=== PATIENT | male | born 1945 | race Caucasian/White ===

== ENCOUNTER 2018-02-06 16:00 | Inpatient (IN) ==
[2018-02-06] MEDS ORDERED: LISINOPRIL 10 MG TABLET PO STA (16:26)
[2018-02-06] MEDS ORDERED: FUROSEMIDE 40 MG/4 ML VIAL IV STA (16:26)
[2018-02-06 17:15] LABS: Basophils % 0.4 % (0.0-0.8); Eosinophils # 0.1 10*3/uL (0.0-0.87); Eosinophils % 1.5 % (0.00-10.9); Hematocrit 34.6 VOL% (42.0-52.0); Hemoglobin 11.4 GM/DL (14.0-18.0); Immature Granulocytes % 0.6 %; Immature Granulocytes Absolute 0.03 #; Lymphocytes # 1.1 10*3/uL (1.4-4.0); Lymphocytes % 22.2 % (21.2-54.2); Mean Corpuscular HGB Conc 32.9 GM/DL (32-36); Mean Corpuscular Hemoglobin 31 PG (27-34); Mean Corpuscular Volume 95.3 FL (87-102); Mean Platelet Volume 9.4 FL (9.6-12.0); Monocytes # 0.6 10*3/uL (0.11-0.8); Monocytes % 12.9 % (1.7-12.7); Neutrophils % 62.4 % (38.7-73.9); Platelet Count 196 T/CUMM (130-400); Red Blood Count 3.63 MC/CUMM (3.8-5.5); Red Cell Distribution Width 12.4 % (9.3-17.3); White Blood Count 4.8 T/CUMM (4-12)
[2018-02-06 17:26] LABS: Apearance,Urine CLEAR (Clear); Bilirubin,Urine Negative (Negative); Blood, Urine Negative (Negative); Glucose,Urine (UA) Negative (Negative); Hyaline Casts,Urine 1 /LPF (0-3); Ketones,Urine Negative (Negative); Mucus,Urine Occasional /LPF (Occasional); Nitrite,Urine Negative (Negative); Protein,Urine Negative; RBC,Urine <1 /HPF (0-4); Urine Color Yellow (Yellow); Urine Specific Gravity 1.012 (1.001-1.035); Urine Urobilinogen < 2.0 EU/DL (0.2-1.0); WBC,Urine 1 /HPF (0-6)
[2018-02-06 17:36] LABS: CKMB % 3.4 %; Troponin I < 0.015 NG/ML (0.00-0.045)
[2018-02-06 17:44] LABS: Albumin 3.2 G/DL (3.4-5.0); Bilirubin,Total 0.4 MG/DL (0.2-1.0); Calcium 10.4 MG/DL (8.5-10.1); Free T4 (Free Thyroxine) 0.95 NG/DL (0.76-1.46); Potassium 3.4 MMOL/L (3.5-5.1); Thyroid Stimulating Hormone 4.02 uIU/ml (0.358-3.74); Total Protein 6.7 G/DL (6.4-8.3)
[2018-02-06] MEDS ORDERED: DOCUSATE SODIUM 100 MG CAPSULE PO PRN (20:00)
[2018-02-06] MEDS ORDERED: ONDANSETRON 4 MG/2 ML VIAL IV PRN (20:00)
[2018-02-06] MEDS ORDERED: LACTULOSE 20 GM/30 ML UDCUP PO PRN (20:00)
[2018-02-06] MEDS ORDERED: ACETAMINOPHEN 325 MG TABLET PO PRN (20:00)
[2018-02-06] MEDS: cefTRIAXone 2,000 MG in SYRINGE 1 EACH IV SCH (22:45)
[2018-02-06] MEDS: SODIUM CHLORIDE 0.45% 1,000 ML IV SCH (22:45)
[2018-02-06] MEDS: ENOXAPARIN 30 MG/0.3 ML SYRINGE SUBCUT SCH (22:49)
[2018-02-06] MEDS: AZITHROMYCIN INJ 250 MG in SODIUM CHLORIDE 0.9% 250 ML IV SCH (22:53)
[2018-02-07 05:10] LABS: Basophils % 0.3 % (0.0-0.8); Eosinophils # 0.1 10*3/uL (0.0-0.87); Eosinophils % 2.1 % (0.00-10.9); Hematocrit 32.2 VOL% (42.0-52.0); Hemoglobin 10.6 GM/DL (14.0-18.0); Lymphocytes # 0.9 10*3/uL (1.4-4.0); Lymphocytes % 22.6 % (21.2-54.2); Mean Corpuscular HGB Conc 32.9 GM/DL (32-36); Mean Corpuscular Hemoglobin 31 PG (27-34); Mean Corpuscular Volume 94.2 FL (87-102); Mean Platelet Volume 9.7 FL (9.6-12.0); Monocytes # 0.5 10*3/uL (0.11-0.8); Monocytes % 11.8 % (1.7-12.7); Neutrophils # 2.4 10*3/uL (1.4-7.4); Neutrophils % 63.2 % (38.7-73.9); Platelet Count 196 T/CUMM (130-400); Red Blood Count 3.42 MC/CUMM (3.8-5.5); Red Cell Distribution Width 12.6 % (9.3-17.3); White Blood Count 3.8 T/CUMM (4-12)
[2018-02-07 05:57] LABS: Calcium 10.9 MG/DL (8.5-10.1); Osmolality,Calculated 287.1 MOS/KG (273-304); Potassium 3.1 MMOL/L (3.5-5.1); Thyroid Stimulating Hormone 3.41 uIU/ml (0.358-3.74)
[2018-02-07] MEDS ORDERED: POTASSIUM CHLORIDE 20 MEQ TABLET PO PRN (07:29)
[2018-02-07] MEDS: amLODIPine 5 MG TABLET PO SCH (09:22)
[2018-02-07] MEDS ORDERED: cefTRIAXone 1,000 MG in SODIUM CHLORIDE 0.9% 100 ML IV ONE (11:57)
[2018-02-07] MEDS ORDERED: fentaNYL 100 MCG/2 ML VIAL ONE (16:55)
[2018-02-07] MEDS ORDERED: SEVOFLURANE 1 UNIT/15 MINUTE INH ONE (16:55)
[2018-02-07] MEDS ORDERED: HYDROmorphone 2 MG/1 ML VIAL IV PRN (17:03)
[2018-02-07] MEDS ORDERED: ONDANSETRON 4 MG/2 ML VIAL IV PRN (17:03)
[2018-02-07] MEDS ORDERED: ONDANSETRON 4 MG/2 ML VIAL ONE (17:17)
[2018-02-07] MEDS ORDERED: HYDROmorphone 2 MG/1 ML VIAL ONE (17:17)
[2018-02-07 18:08] LABS: INR 1.1; PT Patient Result 11.4 SECS
[2018-02-07] MEDS: AZITHROMYCIN INJ 250 MG in SODIUM CHLORIDE 0.9% 250 ML IV SCH (20:46)
[2018-02-07] MEDS: ENOXAPARIN 30 MG/0.3 ML SYRINGE SUBCUT SCH (21:07)
[2018-02-08] MEDS: SODIUM CHLORIDE 0.45% 1,000 ML IV SCH ×2 (01:16→18:17)
[2018-02-08 05:39] LABS: Basophils % 0.3 % (0.0-0.8); Eosinophils # 0.1 10*3/uL (0.0-0.87); Eosinophils % 0.9 % (0.00-10.9); Hematocrit 31.8 VOL% (42.0-52.0); Hemoglobin 10.1 GM/DL (14.0-18.0); Immature Granulocytes % 0.3 %; Immature Granulocytes Absolute 0.02 #; Lymphocytes # 0.9 10*3/uL (1.4-4.0); Lymphocytes % 16.2 % (21.2-54.2); Mean Corpuscular HGB Conc 31.8 GM/DL (32-36); Mean Corpuscular Hemoglobin 31 PG (27-34); Mean Corpuscular Volume 96.7 FL (87-102); Mean Platelet Volume 9.6 FL (9.6-12.0); Monocytes # 0.5 10*3/uL (0.11-0.8); Monocytes % 9.3 % (1.7-12.7); Neutrophils # 4.3 10*3/uL (1.4-7.4); Platelet Count 168 T/CUMM (130-400); Red Blood Count 3.29 MC/CUMM (3.8-5.5); Red Cell Distribution Width 12.8 % (9.3-17.3); White Blood Count 5.8 T/CUMM (4-12)
[2018-02-08 06:00] LABS: Calcium 11.1 MG/DL (8.5-10.1); Osmolality,Calculated 287.1 MOS/KG (273-304); Potassium 3.9 MMOL/L (3.5-5.1)
[2018-02-08] MEDS ORDERED: SODIUM CHLORIDE 0.9% 500 ML IV ONE (09:40)
[2018-02-08] MEDS: amLODIPine 5 MG TABLET PO SCH (14:30)
[2018-02-08] MEDS: POTASSIUM CHLORIDE 20 MEQ TABLET PO SCH (14:30)
[2018-02-08] MEDS: cefTRIAXone 2,000 MG in SYRINGE 1 EACH IV SCH (21:08)
[2018-02-08] MEDS: ENOXAPARIN 30 MG/0.3 ML SYRINGE SUBCUT SCH (21:15)
[2018-02-08] MEDS: AZITHROMYCIN INJ 250 MG in SODIUM CHLORIDE 0.9% 250 ML IV SCH (22:33)
[2018-02-08] MEDS: traZODone 50 MG TABLET PO PRN (22:50)
[2018-02-09] MEDS: amLODIPine 5 MG TABLET PO SCH (08:22)
[2018-02-09] MEDS: POTASSIUM CHLORIDE 20 MEQ TABLET PO SCH (08:22)
[2018-02-09] MEDS: SODIUM CHLORIDE 0.45% 1,000 ML IV SCH (16:13)
[2018-02-09] MEDS: cefTRIAXone 2,000 MG in SYRINGE 1 EACH IV SCH (22:09)
[2018-02-09] MEDS: AZITHROMYCIN INJ 250 MG in SODIUM CHLORIDE 0.9% 250 ML IV SCH (22:10)
[2018-02-09] MEDS: ENOXAPARIN 30 MG/0.3 ML SYRINGE SUBCUT SCH (22:10)
[2018-02-10 04:26] LABS: Basophils % 0.3 % (0.0-0.8); Eosinophils # 0.1 10*3/uL (0.0-0.87); Eosinophils % 2.2 % (0.00-10.9); Hemoglobin 10.4 GM/DL (14.0-18.0); Immature Granulocytes % 0.3 %; Immature Granulocytes Absolute 0.02 #; Lymphocytes # 1.2 10*3/uL (1.4-4.0); Lymphocytes % 18.5 % (21.2-54.2); Mean Corpuscular HGB Conc 32.5 GM/DL (32-36); Mean Corpuscular Hemoglobin 31 PG (27-34); Mean Corpuscular Volume 95.8 FL (87-102); Mean Platelet Volume 9.7 FL (9.6-12.0); Monocytes # 0.6 10*3/uL (0.11-0.8); Monocytes % 9.7 % (1.7-12.7); Neutrophils # 4.3 10*3/uL (1.4-7.4); Platelet Count 141 T/CUMM (130-400); Red Blood Count 3.34 MC/CUMM (3.8-5.5); Red Cell Distribution Width 12.6 % (9.3-17.3); White Blood Count 6.3 T/CUMM (4-12)
[2018-02-10 04:46] LABS: Calcium 10.7 MG/DL (8.5-10.1); Osmolality,Calculated 282.5 MOS/KG (273-304); Potassium 3.7 MMOL/L (3.5-5.1)
[2018-02-10] MEDS: amLODIPine 5 MG TABLET PO SCH (09:05)
[2018-02-10] MEDS: POTASSIUM CHLORIDE 20 MEQ TABLET PO SCH (09:05)
[2018-02-10] MEDS: SODIUM CHLORIDE 0.45% 1,000 ML IV SCH (15:51)
[2018-02-10] MEDS: cefTRIAXone 2,000 MG in SYRINGE 1 EACH IV SCH (22:02)
[2018-02-10] MEDS: ENOXAPARIN 30 MG/0.3 ML SYRINGE SUBCUT SCH (22:03)
[2018-02-10] MEDS: AZITHROMYCIN INJ 250 MG in SODIUM CHLORIDE 0.9% 250 ML IV SCH (22:03)
[2018-02-11 06:14] LABS: Calcium 10.7 MG/DL (8.5-10.1); Osmolality,Calculated 284.4 MOS/KG (273-304); Potassium 3.8 MMOL/L (3.5-5.1)
[2018-02-11] MEDS: amLODIPine 5 MG TABLET PO SCH (09:24)
[2018-02-11] MEDS: POTASSIUM CHLORIDE 20 MEQ TABLET PO SCH (09:24)
[2018-02-11] MEDS: ENOXAPARIN 30 MG/0.3 ML SYRINGE SUBCUT SCH (21:20)
[2018-02-11] MEDS: traZODone 50 MG TABLET PO PRN (21:20)
[2018-02-12 04:42] LABS: Osmolality,Calculated 287.3 MOS/KG (273-304); Potassium 4.1 MMOL/L (3.5-5.1)
[2018-02-12] MEDS: amLODIPine 5 MG TABLET PO SCH (09:31)
[2018-02-12] MEDS: POTASSIUM CHLORIDE 20 MEQ TABLET PO SCH (09:31)
[2018-02-12 15:03] LABS: Microalbum/Creat Ratio Random 231.9 RATIO (0-30)
[2018-02-12] MEDS: traZODone 50 MG TABLET PO PRN (20:38)
[2018-02-12] MEDS: ENOXAPARIN 30 MG/0.3 ML SYRINGE SUBCUT SCH (20:38)
[2018-02-13 05:19] LABS: Basophils % 0.2 % (0.0-0.8); Eosinophils # 0.2 10*3/uL (0.0-0.87); Hematocrit 33.8 VOL% (42.0-52.0); Hemoglobin 10.9 GM/DL (14.0-18.0); Immature Granulocytes % 0.4 %; Immature Granulocytes Absolute 0.02 #; Lymphocytes # 1.1 10*3/uL (1.4-4.0); Lymphocytes % 20.3 % (21.2-54.2); Mean Corpuscular HGB Conc 32.2 GM/DL (32-36); Mean Corpuscular Hemoglobin 31 PG (27-34); Mean Corpuscular Volume 95.5 FL (87-102); Mean Platelet Volume 9.7 FL (9.6-12.0); Monocytes # 0.5 10*3/uL (0.11-0.8); Neutrophils # 3.4 10*3/uL (1.4-7.4); Neutrophils % 65.1 % (38.7-73.9); Platelet Count 189 T/CUMM (130-400); Red Blood Count 3.54 MC/CUMM (3.8-5.5); Red Cell Distribution Width 12.8 % (9.3-17.3); White Blood Count 5.2 T/CUMM (4-12)
[2018-02-13 05:55] LABS: Osmolality,Calculated 285.3 MOS/KG (273-304); Potassium 4.3 MMOL/L (3.5-5.1)
[2018-02-13 06:00] LABS: Albumin 2.6 G/DL (3.4-5.0); Bilirubin,Total 0.5 MG/DL (0.2-1.0); Calcium 11.2 MG/DL (8.5-10.1); Osmolality,Calculated 288.1 MOS/KG (273-304); Potassium 4.3 MMOL/L (3.5-5.1); Total Protein 6.2 G/DL (6.4-8.3)
[2018-02-13] MEDS: amLODIPine 5 MG TABLET PO SCH (08:08)
[2018-02-13] MEDS: POTASSIUM CHLORIDE 20 MEQ TABLET PO SCH (08:08)
[2018-02-13] MEDS: ALLOPURINOL 100 MG TABLET PO SCH (09:35)
[2018-02-13] MEDS: SODIUM CHLORIDE 0.45% 1,000 ML IV SCH ×2 (09:38→20:21)
[2018-02-13] MEDS: ENOXAPARIN 40 MG/0.4 ML SYRINGE SUBCUT SCH (20:22)
[2018-02-14] MEDS: traZODone 50 MG TABLET PO PRN (00:39)
[2018-02-14 05:42] LABS: Calcium 10.8 MG/DL (8.5-10.1); Osmolality,Calculated 283.4 MOS/KG (273-304)
[2018-02-14] MEDS: SODIUM CHLORIDE 0.45% 1,000 ML IV SCH (05:55)
[2018-02-14] MEDS ORDERED: ceFAZolin 1,000 MG in SYRINGE 1 EACH IV ONE (06:30)
[2018-02-14] MEDS ORDERED: FOSAPREPITANT 150 MG in SODIUM CHLORIDE 0.9% 100 ML IV ONE ×2 (09:30→15:00)
[2018-02-14] MEDS ORDERED: VINCRISTINE IV ONE ×2 (09:30→16:00)
[2018-02-14] MEDS ORDERED: diphenhydrAMINE CAP 50 MG CAPSULE PO ONE ×2 (09:30→18:00)
[2018-02-14] MEDS ORDERED: SODIUM CHLORIDE 0.9% IV ONE ×2 (09:30→17:00)
[2018-02-14] MEDS ORDERED: PALONOSETRON 0.25 MG/5 ML VIAL IV ONE (09:30)
[2018-02-14] MEDS ORDERED: ACETAMINOPHEN 325 MG TABLET PO ONE ×2 (09:30→18:00)
[2018-02-14] MEDS ORDERED: DEXAMETHASONE 10 MG/1 ML VIAL IV ONE (09:30)
[2018-02-14] MEDS ORDERED: CYCLOPHOSPHAMIDE IV ONE ×2 (09:30→17:00)
[2018-02-14] MEDS ORDERED: riTUXimab 750 MG in SODIUM CHLORIDE 0.9% 675 ML IV ONE ×2 (09:30→17:00)
[2018-02-14] MEDS ORDERED: DOXORUBICIN IV ONE ×2 (09:30→17:00)
[2018-02-14] MEDS ORDERED: BUPIVACAINE 0.5% /EPI 10 ML VIAL ONE (11:30)
[2018-02-14] MEDS ORDERED: HEPARIN 5,000 UNIT/1 ML VIAL ONE (11:31)
[2018-02-14] MEDS ORDERED: LIDOCAINE 1%/EPI INJ 20 ML VIAL ONE (11:31)
[2018-02-14] MEDS ORDERED: TISSUE ADHESIVE 1 EACH APPLICATOR TOP ONE (11:31)
[2018-02-14] MEDS ORDERED: fentaNYL 100 MCG/2 ML VIAL ONE (13:37)
[2018-02-14] MEDS ORDERED: ONDANSETRON 4 MG/2 ML VIAL ONE (13:37)
[2018-02-14] MEDS ORDERED: MIDAZOLAM 2 MG/2 ML VIAL ONE (13:37)
[2018-02-14] MEDS: POTASSIUM CHLORIDE 20 MEQ TABLET PO SCH (15:07)
[2018-02-14] MEDS: ALLOPURINOL 100 MG TABLET PO SCH (15:08)
[2018-02-14] MEDS: amLODIPine 5 MG TABLET PO SCH (15:08)
[2018-02-14] MEDS ORDERED: RASBURICASE 7.5 MG in SODIUM CHLORIDE 0.9% 50 ML IV ONE ×2 (17:00→18:00)
[2018-02-14] MEDS: ENOXAPARIN 40 MG/0.4 ML SYRINGE SUBCUT SCH (21:01)
[2018-02-15] MEDS: SODIUM CHLORIDE 0.45% 1,000 ML IV SCH ×2 (01:32→01:33)
[2018-02-15 04:01] LABS: Hematocrit 33.9 VOL% (42.0-52.0); Immature Granulocytes % 0.6 %; Immature Granulocytes Absolute 0.03 #; Lymphocytes # 0.4 10*3/uL (1.4-4.0); Lymphocytes % 6.9 % (21.2-54.2); Mean Corpuscular HGB Conc 32.4 GM/DL (32-36); Mean Corpuscular Hemoglobin 31 PG (27-34); Mean Corpuscular Volume 95.2 FL (87-102); Mean Platelet Volume 9.4 FL (9.6-12.0); Monocytes # 0.1 10*3/uL (0.11-0.8); Monocytes % 2.3 % (1.7-12.7); Neutrophils # 4.7 10*3/uL (1.4-7.4); Neutrophils % 90.2 % (38.7-73.9); Platelet Count 198 T/CUMM (130-400); Red Blood Count 3.56 MC/CUMM (3.8-5.5); Red Cell Distribution Width 12.4 % (9.3-17.3); White Blood Count 5.3 T/CUMM (4-12)
[2018-02-15 04:21] LABS: Osmolality,Calculated 286.5 MOS/KG (273-304); Potassium 4.9 MMOL/L (3.5-5.1)
[2018-02-15 04:24] LABS: Albumin 2.5 G/DL (3.4-5.0); Bilirubin,Total 0.7 MG/DL (0.2-1.0); Calcium 9.9 MG/DL (8.5-10.1); Osmolality,Calculated 289.4 MOS/KG (273-304); Total Protein 5.9 G/DL (6.4-8.3)
[2018-02-15 04:28] LABS: Uric Acid 4.1 MG/DL (3.5-7.2)
[2018-02-15] MEDS: amLODIPine 5 MG TABLET PO SCH (10:10)
[2018-02-15] MEDS: predniSONE 50 MG TABLET PO SCH (10:11)
[2018-02-15] MEDS: ALLOPURINOL 100 MG TABLET PO SCH (10:11)
[2018-02-15] MEDS: FILGRASTIM-SNDZ 300 MCG/0.5 ML SYRINGE SUBCUT SCH (10:12)
[2018-02-15] MEDS: SODIUM BICARB INJ 100 MEQ in DEXTROSE 5% 1,000 ML IV SCH (13:37)
[2018-02-15] MEDS: ENOXAPARIN 40 MG/0.4 ML SYRINGE SUBCUT SCH (21:02)
[2018-02-16] MEDS: SODIUM BICARB INJ 100 MEQ in DEXTROSE 5% 1,000 ML IV SCH ×3 (00:01→21:31)
[2018-02-16 06:11] LABS: Basophils % 0.1 % (0.0-0.8); Hematocrit 32.7 VOL% (42.0-52.0); Hemoglobin 10.9 GM/DL (14.0-18.0); Immature Granulocytes % 2.8 %; Immature Granulocytes Absolute 0.49 #; Lymphocytes # 0.5 10*3/uL (1.4-4.0); Lymphocytes % 2.5 % (21.2-54.2); Mean Corpuscular HGB Conc 33.3 GM/DL (32-36); Mean Corpuscular Hemoglobin 32 PG (27-34); Mean Corpuscular Volume 95.9 FL (87-102); Mean Platelet Volume 9.5 FL (9.6-12.0); Monocytes % 5.8 % (1.7-12.7); Neutrophils # 15.8 10*3/uL (1.4-7.4); Neutrophils % 88.8 % (38.7-73.9); Platelet Count 263 T/CUMM (130-400); Red Blood Count 3.41 MC/CUMM (3.8-5.5); Red Cell Distribution Width 12.6 % (9.3-17.3); White Blood Count 17.8 T/CUMM (4-12)
[2018-02-16 06:20] LABS: Uric Acid 2.3 MG/DL (3.5-7.2)
[2018-02-16 06:23] LABS: Alanine Aminotransferase 23 U/L (16-61); Albumin 2.7 G/DL (3.4-5.0); Alkaline Phosphatase 96 U/L (45-117); Aspartate Amino Transferase 26 U/L (0-37); Bilirubin,Total < 0.39 MG/DL (0.2-1.0); Blood Urea Nitrogen 43 MG/DL (7-18); Glucose 143 MG/DL (74-106); Osmolality,Calculated 295.1 MOS/KG (273-304); Potassium 4.4 MMOL/L (3.5-5.1); Sodium 142 MMOL/L (136-145); Total Protein 5.9 G/DL (6.4-8.3)
[2018-02-16 06:50] LABS: Band Neutrophils 8 % (0-10); Hypochromasia Slight; Lymphocytes 3 % (20-55); Platelet Estimate Normal; Segmented Neutrophils 83 % (50-85); Total Cells Counted 100
[2018-02-16] MEDS: ALLOPURINOL 100 MG TABLET PO SCH (09:27)
[2018-02-16] MEDS: FILGRASTIM-SNDZ 300 MCG/0.5 ML SYRINGE SUBCUT SCH (09:27)
[2018-02-16] MEDS: amLODIPine 5 MG TABLET PO SCH (09:28)
[2018-02-16] MEDS: predniSONE 50 MG TABLET PO SCH (09:28)
[2018-02-16] MEDS: POLYETHYLENE GLYCOL POWDER 17 GM PACK PO SCH (10:18)
[2018-02-16] MEDS: DOCUSATE SODIUM 100 MG CAPSULE PO SCH ×2 (10:21→20:49)
[2018-02-16] MEDS: MAGNESIUM HYDROXIDE SUSP 30 ML UDCUP PO PRN (10:25)
[2018-02-16] MEDS ORDERED: RASBURICASE 7.5 MG in SODIUM CHLORIDE 0.9% 50 ML IV ONE (15:00)
[2018-02-16] MEDS: ENOXAPARIN 40 MG/0.4 ML SYRINGE SUBCUT SCH (20:50)
[2018-02-16] MEDS: traZODone 50 MG TABLET PO PRN (23:49)
[2018-02-17 05:41] LABS: Basophils % 0.1 % (0.0-0.8); Hematocrit 33.7 VOL% (42.0-52.0); Hemoglobin 11.2 GM/DL (14.0-18.0); Immature Granulocytes % 9.1 %; Immature Granulocytes Absolute 2.02 #; Lymphocytes # 0.5 10*3/uL (1.4-4.0); Lymphocytes % 2.3 % (21.2-54.2); Mean Corpuscular HGB Conc 33.2 GM/DL (32-36); Mean Corpuscular Hemoglobin 32 PG (27-34); Mean Corpuscular Volume 95.5 FL (87-102); Mean Platelet Volume 9.2 FL (9.6-12.0); Monocytes # 1.1 10*3/uL (0.11-0.8); Monocytes % 5.1 % (1.7-12.7); Neutrophils # 18.6 10*3/uL (1.4-7.4); Neutrophils % 83.4 % (38.7-73.9); Platelet Count 275 T/CUMM (130-400); Red Blood Count 3.53 MC/CUMM (3.8-5.5); Red Cell Distribution Width 12.8 % (9.3-17.3); White Blood Count 22.3 T/CUMM (4-12)
[2018-02-17 06:11] LABS: Uric Acid 0.4 MG/DL (3.5-7.2)
[2018-02-17 06:15] LABS: Alanine Aminotransferase 24 U/L (16-61); Albumin 2.6 G/DL (3.4-5.0); Alkaline Phosphatase 96 U/L (45-117); Aspartate Amino Transferase 24 U/L (0-37); Bilirubin,Total < 0.39 MG/DL (0.2-1.0); Blood Urea Nitrogen 41 MG/DL (7-18); Calcium 9.5 MG/DL (8.5-10.1); Glucose 127 MG/DL (74-106); Osmolality,Calculated 292.3 MOS/KG (273-304); Sodium 141 MMOL/L (136-145); Total Protein 5.8 G/DL (6.4-8.3)
[2018-02-17 08:04] LABS: Band Neutrophils 20 % (0-10); Lymphocytes 4 % (20-55); Platelet Estimate Normal; Segmented Neutrophils 71 % (50-85); Total Cells Counted 100
[2018-02-17 08:09] LABS: Anisocytosis 1+
[2018-02-17 08:10] LABS: Hypochromasia Slight
[2018-02-17] MEDS: SODIUM BICARB INJ 100 MEQ in DEXTROSE 5% 1,000 ML IV SCH ×2 (09:21→21:30)
[2018-02-17] MEDS: ALLOPURINOL 100 MG TABLET PO SCH (09:22)
[2018-02-17] MEDS: predniSONE 50 MG TABLET PO SCH (09:22)
[2018-02-17] MEDS: amLODIPine 5 MG TABLET PO SCH (09:22)
[2018-02-17] MEDS: DOCUSATE SODIUM 100 MG CAPSULE PO SCH ×2 (09:23→20:17)
[2018-02-17] MEDS: POLYETHYLENE GLYCOL POWDER 17 GM PACK PO SCH (09:24)
[2018-02-17] MEDS: FILGRASTIM-SNDZ 300 MCG/0.5 ML SYRINGE SUBCUT SCH (09:26)
[2018-02-17] MEDS: ENOXAPARIN 40 MG/0.4 ML SYRINGE SUBCUT SCH (20:16)
[2018-02-17] MEDS: traZODone 50 MG TABLET PO PRN (21:30)
[2018-02-18 05:43] LABS: Basophils # 0.1 10*3/uL (0.0-0.2); Basophils % 0.4 % (0.0-0.8); Hematocrit 32.6 VOL% (42.0-52.0); Hemoglobin 10.7 GM/DL (14.0-18.0); Immature Granulocytes % 8.9 %; Immature Granulocytes Absolute 1.75 #; Lymphocytes # 0.6 10*3/uL (1.4-4.0); Mean Corpuscular HGB Conc 32.8 GM/DL (32-36); Mean Corpuscular Hemoglobin 32 PG (27-34); Mean Corpuscular Volume 96.4 FL (87-102); Mean Platelet Volume 9.3 FL (9.6-12.0); Monocytes # 0.4 10*3/uL (0.11-0.8); Monocytes % 2.1 % (1.7-12.7); Neutrophils # 16.8 10*3/uL (1.4-7.4); Neutrophils % 85.6 % (38.7-73.9); Platelet Count 253 T/CUMM (130-400); Red Blood Count 3.38 MC/CUMM (3.8-5.5); Red Cell Distribution Width 12.7 % (9.3-17.3); White Blood Count 19.7 T/CUMM (4-12)
[2018-02-18] MEDS: MAGNESIUM HYDROXIDE SUSP 30 ML UDCUP PO PRN (06:08)
[2018-02-18 06:09] LABS: Albumin 2.4 G/DL (3.4-5.0); Bilirubin,Total 0.6 MG/DL (0.2-1.0); Calcium 8.9 MG/DL (8.5-10.1); Potassium 4.1 MMOL/L (3.5-5.1); Total Protein 5.6 G/DL (6.4-8.3)
[2018-02-18 06:11] LABS: Uric Acid 0.8 MG/DL (3.5-7.2)
[2018-02-18 06:45] LABS: Band Neutrophils 2 % (0-10); Lymphocytes 1 % (20-55); Segmented Neutrophils 94 % (50-85); Total Cells Counted 100
[2018-02-18 06:46] LABS: Hypochromasia Slight; Platelet Estimate Normal
[2018-02-18] MEDS: SODIUM BICARB INJ 100 MEQ in DEXTROSE 5% 1,000 ML IV SCH ×2 (08:30→20:43)
[2018-02-18] MEDS: predniSONE 50 MG TABLET PO SCH (09:34)
[2018-02-18] MEDS: DOCUSATE SODIUM 100 MG CAPSULE PO SCH ×2 (09:34→20:41)
[2018-02-18] MEDS: POLYETHYLENE GLYCOL POWDER 17 GM PACK PO SCH (09:35)
[2018-02-18] MEDS: amLODIPine 5 MG TABLET PO SCH (09:35)
[2018-02-18] MEDS: ALLOPURINOL 100 MG TABLET PO SCH (09:35)
[2018-02-18] MEDS: ENOXAPARIN 40 MG/0.4 ML SYRINGE SUBCUT SCH (20:41)
[2018-02-18] MEDS: traZODone 50 MG TABLET PO PRN (20:41)
[2018-02-19 04:42] LABS: Basophils # 0.1 10*3/uL (0.0-0.2); Basophils % 0.6 % (0.0-0.8); Hematocrit 32.8 VOL% (42.0-52.0); Hemoglobin 10.7 GM/DL (14.0-18.0); Immature Granulocytes % 10.6 %; Immature Granulocytes Absolute 1.84 #; Lymphocytes # 0.8 10*3/uL (1.4-4.0); Lymphocytes % 4.3 % (21.2-54.2); Mean Corpuscular HGB Conc 32.6 GM/DL (32-36); Mean Corpuscular Hemoglobin 31 PG (27-34); Mean Corpuscular Volume 95.9 FL (87-102); Monocytes # 0.1 10*3/uL (0.11-0.8); Monocytes % 0.8 % (1.7-12.7); Neutrophils # 14.5 10*3/uL (1.4-7.4); Neutrophils % 83.7 % (38.7-73.9); Platelet Count 259 T/CUMM (130-400); Red Blood Count 3.42 MC/CUMM (3.8-5.5); Red Cell Distribution Width 12.7 % (9.3-17.3); White Blood Count 17.3 T/CUMM (4-12)
[2018-02-19 05:10] LABS: Uric Acid 1.3 MG/DL (3.5-7.2)
[2018-02-19 05:11] LABS: Hypochromasia 1+; Lymphocytes 5 % (20-55); Platelet Estimate Adequate; Segmented Neutrophils 94 % (50-85); Total Cells Counted 100
[2018-02-19 05:13] LABS: Albumin 2.3 G/DL (3.4-5.0); Bilirubin,Total 0.7 MG/DL (0.2-1.0); Calcium 8.9 MG/DL (8.5-10.1); Potassium 3.9 MMOL/L (3.5-5.1); Total Protein 5.6 G/DL (6.4-8.3)
[2018-02-19] MEDS: ALLOPURINOL 100 MG TABLET PO SCH (08:59)
[2018-02-19] MEDS: predniSONE 50 MG TABLET PO SCH (08:59)
[2018-02-19] MEDS: POLYETHYLENE GLYCOL POWDER 17 GM PACK PO SCH (09:00)
[2018-02-19] MEDS: DOCUSATE SODIUM 100 MG CAPSULE PO SCH (09:00)
[2018-02-19] MEDS: amLODIPine 5 MG TABLET PO SCH (09:00)
[2018-02-19] MEDS: SODIUM BICARB INJ 100 MEQ in DEXTROSE 5% 1,000 ML IV SCH (09:04)
[2018-02-19] MEDS: FILGRASTIM-SNDZ 300 MCG/0.5 ML SYRINGE SUBCUT SCH (09:04)
[2018-02-19 09:45] VITALS: BP 165/93
== END 2018-02-19 11:11 | disposition home or self-care (01) | DRG 823 ==
LOC: N.ED 16:00 → SUATTDRO 20:00 → N.EDINP 20:00 → N.2E 21:01 → N.4E 02-13 10:23
PROVIDERS: ADMIT Hospitalist; ATTEND Internal Medicine Geriatric Medicine

== ENCOUNTER 2018-12-21 11:29 | Inpatient (IN) ==
[2018-12-21] MEDS ORDERED: ONDANSETRON 4 MG/2 ML VIAL IV STA (11:56)
[2018-12-21] MEDS ORDERED: MEROPENEM 1,000 MG in SODIUM CHLORIDE 0.9% 100 ML IV STA ×2 (12:10→12:21)
[2018-12-21] MEDS ORDERED: ALBUTEROL/IPRATROPIUM 3 ML NEB RESP TX STA (12:10)
[2018-12-21 12:21] LABS: Basophils % 0.1 % (0.0-0.8); Eosinophils % 0.3 % (0.00-10.9); Hematocrit 34.2 VOL% (42.0-52.0); Hemoglobin 11.3 GM/DL (14.0-18.0); Immature Granulocytes % 0.6 %; Immature Granulocytes Absolute 0.08 #; Lymphocytes # 0.9 10*3/uL (1.4-4.0); Lymphocytes % 6.6 % (21.2-54.2); Mean Corpuscular Volume 93.4 FL (87-102); Monocytes % 10.5 % (1.7-12.7); Neutrophils % 81.9 % (38.7-73.9); Platelet Count 366 T/CUMM (130-400); Red Blood Count 3.66 MC/CUMM (3.8-5.5); Red Cell Distribution Width 13.3 % (9.3-17.3); White Blood Count 14.2 T/CUMM (4-12)
[2018-12-21 12:33] LABS: INR 1.1; PT Patient Result 11.4 SECS (9.6-12.2); Partial Thromboplastin Time 32.2 SECS (20.8-36.0)
[2018-12-21 12:44] LABS: Alanine Aminotransferase 70 U/L (16-61); Albumin 2.3 G/DL (3.4-5.0); Alkaline Phosphatase 172 U/L (45-117); Aspartate Amino Transferase 50 U/L (0-37); Blood Urea Nitrogen 20 MG/DL (7-18); Estimated Glom Filtration Rate 57 ML/MIN; Glucose 119 MG/DL (74-106); Osmolality,Calculated 271.2 MOS/KG (273-304); Total Protein 7.7 G/DL (6.4-8.3); Troponin I < 0.015 NG/ML (0.00-0.045)
[2018-12-21] MEDS ORDERED: SODIUM CHLORIDE 0.9% 500 ML IV STA (13:29)
[2018-12-21] MEDS: ALBUTEROL/IPRATROPIUM 3 ML NEB RESP TX SCH (20:15)
[2018-12-21 20:39] LABS: Apearance,Urine CLEAR (Clear); Bilirubin,Urine Negative (Negative); Blood, Urine Negative (Negative); Glucose,Urine (UA) Negative (Negative); Ketones,Urine Negative (Negative); Mucus,Urine Occasional /LPF (Occasional); Nitrite,Urine Negative (Negative); Protein,Urine Negative; RBC,Urine 1 /HPF (0-4); Urine Color Yellow (Yellow); Urine Specific Gravity 1.014 (1.001-1.035); Urine Urobilinogen < 2.0 EU/DL (0.2-1.0); WBC,Urine <1 /HPF (0-6)
[2018-12-22] MEDS: ALBUTEROL/IPRATROPIUM 3 ML NEB RESP TX SCH ×4 (00:55→19:30)
[2018-12-22 04:48] LABS: Basophils % 0.1 % (0.0-0.8); Eosinophils # 0.1 10*3/uL (0.0-0.87); Eosinophils % 1.3 % (0.00-10.9); Hematocrit 30.7 VOL% (42.0-52.0); Hemoglobin 9.9 GM/DL (14.0-18.0); Immature Granulocytes % 0.4 %; Immature Granulocytes Absolute 0.03 #; Lymphocytes # 1.2 10*3/uL (1.4-4.0); Lymphocytes % 14.6 % (21.2-54.2); Mean Corpuscular HGB Conc 32.2 GM/DL (32-36); Mean Corpuscular Volume 94.5 FL (87-102); Mean Platelet Volume 9.1 FL (9.6-12.0); Monocytes % 12.5 % (1.7-12.7); Neutrophils % 71.1 % (38.7-73.9); Platelet Count 310 T/CUMM (130-400); Red Blood Count 3.25 MC/CUMM (3.8-5.5); Red Cell Distribution Width 13.3 % (9.3-17.3); White Blood Count 8.3 T/CUMM (4-12)
[2018-12-22 05:34] LABS: Calcium 8.9 MG/DL (8.5-10.1); Osmolality,Calculated 278.5 MOS/KG (273-304); Risk Ratio 5.12; Thyroid Stimulating Hormone 1.15 uIU/ml (0.358-3.74); VLDL CHOLESTEROL 22.2 MG/DL
[2018-12-22] MEDS: PANTOPRAZOLE 40 MG TABLET PO SCH (08:49)
[2018-12-22] MEDS: ENOXAPARIN 40 MG/0.4 ML SYRINGE SUBCUT SCH (08:50)
[2018-12-22] MEDS: LEVOFLOXACIN INJ 750 MG in PREMIX 1 EACH IV SCH (08:52)
[2018-12-22] MEDS: guaiFENesin 200 MG/10 ML UDCUP PO PRN ×2 (14:33→18:15)
[2018-12-22] MEDS: traZODone 50 MG TABLET PO PRN (21:04)
[2018-12-23] MEDS: ALBUTEROL/IPRATROPIUM 3 ML NEB RESP TX SCH ×4 (00:35→19:36)
[2018-12-23 04:57] LABS: Basophils % 0.2 % (0.0-0.8); Eosinophils # 0.1 10*3/uL (0.0-0.87); Eosinophils % 0.9 % (0.00-10.9); Hematocrit 31.9 VOL% (42.0-52.0); Hemoglobin 10.3 GM/DL (14.0-18.0); Immature Granulocytes % 0.6 %; Immature Granulocytes Absolute 0.05 #; Lymphocytes # 1.2 10*3/uL (1.4-4.0); Lymphocytes % 14.1 % (21.2-54.2); Mean Corpuscular HGB Conc 32.3 GM/DL (32-36); Mean Corpuscular Volume 93.8 FL (87-102); Mean Platelet Volume 8.7 FL (9.6-12.0); Monocytes % 11.4 % (1.7-12.7); Neutrophils % 72.8 % (38.7-73.9); Platelet Count 367 T/CUMM (130-400); Red Cell Distribution Width 13.2 % (9.3-17.3); White Blood Count 8.5 T/CUMM (4-12)
[2018-12-23 05:29] LABS: Calcium 8.8 MG/DL (8.5-10.1); Osmolality,Calculated 277.7 MOS/KG (273-304)
[2018-12-23] MEDS: PANTOPRAZOLE 40 MG TABLET PO SCH (08:30)
[2018-12-23] MEDS: LEVOFLOXACIN INJ 750 MG in PREMIX 1 EACH IV SCH (08:30)
[2018-12-23] MEDS: ENOXAPARIN 40 MG/0.4 ML SYRINGE SUBCUT SCH (08:30)
[2018-12-23] MEDS: guaiFENesin 200 MG/10 ML UDCUP PO PRN (11:39)
[2018-12-23] MEDS: ACETAMINOPHEN 325 MG TABLET PO PRN (21:02)
[2018-12-23] MEDS: traZODone 50 MG TABLET PO PRN (21:03)
[2018-12-24] MEDS: ALBUTEROL/IPRATROPIUM 3 ML NEB RESP TX SCH ×2 (00:07→07:13)
[2018-12-24] MEDS: ENOXAPARIN 40 MG/0.4 ML SYRINGE SUBCUT SCH (08:21)
[2018-12-24] MEDS: LEVOFLOXACIN INJ 750 MG in PREMIX 1 EACH IV SCH (08:21)
[2018-12-24] MEDS: PANTOPRAZOLE 40 MG TABLET PO SCH (08:23)
[2018-12-24] MEDS: ACETAMINOPHEN 325 MG TABLET PO PRN (08:42)
[2018-12-24] MEDS ORDERED: INFLUENZA VIRUS VACCINE 0.5 ML SYRINGE IM ONE (09:00)
[2018-12-24] MEDS ORDERED: CYANOCOBALAMIN 500 MCG TABLET PO ONE (10:33)
[2018-12-24 11:42] VITALS: BP 123/79
== END 2018-12-24 12:10 | disposition home or self-care (01) | DRG 194 ==
LOC: N.ED 11:29 → SUPCPDRO 14:44 → SUATTDRO 14:44 → N.EDINP 14:44 → N.4E 16:45
PROVIDERS: ADMIT Internal Medicine; ATTEND Hospitalist